=== PATIENT | female | born 1965 | race Caucasian/White ===

== ENCOUNTER 2024-02-11 06:06 | Inpatient (IN) ==
--- NOTE | 2023-12-17 09:09 | PAT Medication Instructions ---
Medication Instructions Date of Service December 17, 2023 Home Medications losartan 25 mg tablet 50 mg PO QAM multivitamin 1 tab PO QAM polyethylene glycol 3350 17 gram/dose oral powder (GlycoLax) 17 g PO UD PRN naproxen 500 mg tablet 500 mg PO UD PRN tramadol 50 mg tablet 0 mg PO UD PRN Continue as directed tramadol 50 mg tablet 0 mg PO UD PRN(if needed) ASK your surgeon for instructions naproxen 500 mg tablet 500 mg PO UD PRN DO NOT take the morning of surgery losartan 25 mg tablet 50 mg PO QAM multivitamin 1 tab PO QAM polyethylene glycol 3350 17 gram/dose oral powder (GlycoLax) 17 g PO UD PRN Other Notes NOTHING TO EAT OR DRINK AFTER MIDNIGHT. If you have any questions please call us at [phone] or [phone] or [phone] or [phone]
--- NOTE | 2023-12-22 10:46 | Anesthesiology Consultation ---
Date of Service December 22, 2023 Assessment & Plan (1) Encounter for pre-operative examination: - PCP pre-operative evaluation 12/22/23 [facility]: "...Reviewed pre op testing done at [facility] this morning -- EKG, CXR, and labs WNL. No contraindications to above- listed procedure...Reviewed pre op testing done at [facility] this morning -- EKG, CXR, and labs WNL. No contraindications to above-listed procedure..." Chart Review Chart Review: Acceptable Risk for Surgery and Patient seen in Pre Admission Testing Teaching & Discussion Pre-Anesthesia Teaching/Discussion Notes: Instructed NPO after midnight before surgery, except medications with 15 cc of water. Medication instructions provided according to the PAT guidelines. History Surgery Operation Date: 02/11/24 07:45 Proposed Procedures p L4-L5 Decompression and Fusion with Spinal Cord Monitoring - Praveen Marie DO Height/Weight Height: 5 ft 8 in Weight: 60 kg Allergies Allergy/AdvReac Type Severity Reaction Status Date / Time No Known Allergies Allergy Verified 12/16/23 14:45 Medications Home Medications Medication Instructions Recorded Confirmed Last Taken losartan 25 mg tablet 50 mg PO QAM 08/14/21 12/16/23 Unknown multivitamin 1 tab PO QAM 08/14/21 12/16/23 Unknown polyethylene glycol 3350 17 17 g PO UD PRN regularity 08/14/21 12/16/23 Unknown gram/dose oral powder (GlycoLax) naproxen 500 mg tablet 500 mg PO UD PRN headaches 12/16/23 12/16/23 Unknown tramadol 50 mg tablet 0 mg PO UD PRN pain in fingers 12/16/23 12/16/23 Unknown Past Medical History Medical History (Updated 12/22/23 @ 13:42 by Dannielle Silverman PA-C) Chronic headaches onset 2021, denies change or worsening HTN (hypertension) variable per pt Low back pain chronic, denies change or worsening Pain of hand and fingers pain of fingers/no official dx. No rheumatoid markers per pt. Patient denies h/o stroke, seizures, heart attack, heart failure, DM, blood clots/DVTs or blood transfusions. Exercise / Class Metabolic Activity II 4-5 Yardwork/Stairs/Walk up hill (denies chest discomfort or shortness of breath with 1 FOS) Past Surgical History Surgical History (Updated 12/22/23 @ 10:53 by Dannielle Silverman PA-C) H/O wisdom tooth extraction History of bilateral breast reduction surgery History of bunionectomy of right great toe History of colonoscopy History of repair of rectocele Hx of LASIK Past Anesthesia History No Hx of Anesthesia Complications and No Family Hx of Anesthesia Complications History of PONV No Hx of PONV and No Hx of Motion Sickness Social History Smoking Status: Never smoker Do You Dip or Chew Tobacco: No Hx Alcohol Use: No Hx Substance Use: No substance use type: does not use Review of Systems Patient denies chest pain, shortness of breath, dyspnea on exertion, snoring, witnessed apneas, reflux, fever, chills, cough, wheezing, or palpitations. Physical Exam Vital Signs Vitals BP 138/86 manual left arm P 95 TEMP 99.1 SP02 97% on RA RESP 17 Physical Patient resting comfortably in chair in no acute distress, alert and oriented, responding appropriately throughout visit Full cervical extension range of motion without pain TMD 3.5 finger breadths Mallampati Score 2 Dentition: intact, denies chipped or loose teeth, caps/crowns, implants or bridges Lungs: normal respiratory effort. Good air movement, clear throughout to auscultation, no adventitious breath sounds Cardiac: regular rate and rhythm, no murmurs noted Carotid arteries: negative bruit bilat Lab Results Anesthesia Preop Results Results Anesthesia Widget: WBC 6.18 K/ul (4.8-10.8) 12/22/23 Hgb 13.6 g/dl (12.0-16.0) 12/22/23 Hct 39.5 % (37.0-47.0) 12/22/23 Plt 257 K/uL (130-400) 12/22/23 Na 138 mmol/L (136-145) 12/22/23 K 4.1 mmol/L (3.5-5.1) 12/22/23 Cl 106 mmol/L (98-107) 12/22/23 CO2 25 mmol/L (21-32) 12/22/23 BUN 22 mg/dl (6-23) 12/22/23 Creat 0.78 mg/dl (0.6-1.2) 12/22/23 Glucose Level 72 mg/dl (70-99(Fasting)) 12/22/23 PT 11.5 Seconds (9.0-12.0) 12/22/23 PTT 26 Seconds (21-31) 12/22/23 INR 1.1 (0.9-1.1) 12/22/23 Urine Color Dark Yellow 12/22/23 Urine Appearance Clear (Clear) 12/22/23 Urine pH 5.5 (4.5-7.5) 12/22/23 Urine Specific [place] 1.020 (1.000-1.030) 12/22/23 Urine Protein Negative (Negative) 12/22/23 Urine Glucose (UA) Negative (Negative) 12/22/23 Urine Ketones Negative (Negative) 12/22/23 Urine Blood Negative (Negative) 12/22/23 Urine Nitrite Negative (Negative) 12/22/23 Urine Bilirubin Negative (Negative) 12/22/23 Urine Urobilinogen Negative (Negative) 12/22/23 Urine Leukocyte Esterase Negative (Negative) 12/22/23 Blood Type O Positive 12/22/23 Antibody Screen NEGATIVE 12/22/23 Testing Electrocardiogram Date: 12/22/23 NSR with sinus arrhythmia, rate 75 bpm Poor R wave progression, consider anterior CT vs lead placement vs LVH Chest X-Ray Date: 12/22/23 No acute process. Stress Test Date: 08/09/22 Pharmacologic No evidence of ischemia or infarction Normal LVEF and wall motion EF 53%
[2024-02-11] MEDS: LR 15ML/HR IV SCH (06:52)
[2024-02-11] MEDS: LR 60ML/HR IV SCH (06:52)
[2024-02-11] MEDS: GABAPENTIN 600 MG DOSE PO SCH (06:57)
[2024-02-11] MEDS: ACETAMINOPHEN 500 MG TAB PO SCH (06:57)
[2024-02-11] MEDS: CeleBREX 200 MG CAP PO SCH (06:57)
[2024-02-11] MEDS ORDERED: MIDAZOLAM HCL 1 MG/ML 2ML VIAL ONE (07:24)
[2024-02-11] MEDS ORDERED: SUGAMMADEX SODIUM 200 MG/2 ML VIAL IV ONE (07:24)
[2024-02-11] MEDS ORDERED: ROCURONIUM BROMIDE 10 MG/ML 5 ML VIAL IV ONE (07:24)
[2024-02-11] MEDS ORDERED: ONDANSETRON INJ 2 MG/ML 2 ML VIAL ONE (07:24)
[2024-02-11] MEDS ORDERED: LIDOCAINE 2% 2 ML VIAL/AMP(20MG/ML) INFIL ONE (07:24)
[2024-02-11] MEDS ORDERED: fentaNYL citrate PF 100 MCG/2 ML VIAL ONE (07:24)
[2024-02-11] MEDS ORDERED: DEXAMETHASONE SOD INJ 4 MG/ML VIAL ONE (07:24)
[2024-02-11] MEDS ORDERED: PROMETHAZINE HCL 6.25 MG in SODIUM CHLORIDE 0.9% 50 ML IV PRN (07:48)
[2024-02-11] MEDS ORDERED: ePHEDrine sulfate 50 MG/ML AMP IV PRN (07:48)
[2024-02-11] MEDS ORDERED: ATROPINE SULFATE 0.1 MG/ML 10ML SYR IV PRN (07:48)
[2024-02-11] MEDS ORDERED: ONDANSETRON INJ 2 MG/ML 2 ML VIAL IV PRN ×2 (07:48→11:13)
--- NOTE | 2024-02-11 07:49 | History & Physical Bridge Note ---
Date of Service February 11, 2024 History & Physical Bridge Note I have examined the patient, reviewed the History & Physical and in the interval since the performance of the History & Physical I have noted the following changes of clinical significance: no changes noted
--- NOTE | 2024-02-11 07:50 | History & Physical Report ---
Date of Service February 11, 2024 Assessment & Plan (1) Neurogenic claudication due to lumbar spinal stenosis: Plan: L4-L5 decompression and fusion possible L5-S1 History of Present Illness Chief Complaint: Back and leg pain Primary Care Provider: Rosy Wheeler DO This is a 58-year-old female presents with chronic persistent back and leg pain after failing course of nonoperative care is here for surgical invention. Allergies Allergy/AdvReac Type Severity Reaction Status Date / Time No Known Allergies Allergy Verified 02/11/24 06:34 Home Medications Medication Instructions Recorded Confirmed Type losartan 25 mg tablet 50 mg PO QAM 08/14/21 02/11/24 History multivitamin 1 tab PO QAM 08/14/21 02/11/24 History polyethylene glycol 3350 17 17 g PO UD PRN regularity 08/14/21 02/11/24 History gram/dose oral powder (GlycoLax) naproxen 500 mg tablet 500 mg PO UD PRN headaches 12/16/23 02/11/24 History tramadol 50 mg tablet 50 mg PO UD PRN pain in fingers 12/16/23 02/11/24 History calcium 100 mg capsule 100 mg PO 02/11/24 History cholecalciferol (vitamin D3) 10 10 mcg PO DAILY 02/11/24 02/11/24 History mcg (400 unit) capsule (Vitamin D3) Past Med/Surg History Medical History (Updated 02/11/24 @ 07:50 by Praveen Marie DO) Chronic headaches onset 2021, denies change or worsening Pain of hand and fingers pain of fingers/no official dx. No rheumatoid markers per pt. Low back pain chronic, denies change or worsening HTN (hypertension) variable per pt Surgical History Hx of LASIK History of colonoscopy History of bilateral breast reduction surgery History of repair of rectocele History of bunionectomy of right great toe H/O wisdom tooth extraction Social History Smoking Status: Never smoker Do You Dip or Chew Tobacco: No; Hx Alcohol Use: No Hx Substance Use: No Preferred Language: Kazakh Communication Ability: Effective Visual Impairment: No Limitations Hearing Ability: Normal Housekeeping Coordinator Required: No Beliefs That Will Affect Care: None marital status: Current Living Situation: Spouse Current Living Situation Comment: and dog current occupational status: employed 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 Physical Exam Physical Exam: Patient is alert and oriented Heart regular in rhythm lungs clear Results & Data Results & Data Vital Signs (Past 12 Hours) Vital Signs Temp Pulse Resp BP Pulse Ox O2 Del Method 02/11/24 06:38 36.8 C 89 18 134/93 97 Room Air
[2024-02-11] MEDS: ceFAZolin 2000MG 2,000 MG/15 ML SYR IV SCH (07:58)
[2024-02-11] MEDS ORDERED: KETAMINE HCL 10MG/ML SYR ONE (08:30)
[2024-02-11] MEDS: BUPIVACAINE/EPINEPHRINE 0.5% MPF 1:200,000 30 ML VIAL ONE (08:30)
[2024-02-11] MEDS ORDERED: ACETAMINOPHEN 1000 MG/100 ML IV IV ONE (08:30)
[2024-02-11] MEDS: ceFAZolin 330 MG/ML 1 GM VIAL ONE (08:30)
[2024-02-11] MEDS ORDERED: PHENYLEPHRINE 100MCG/ML 10ML SYR IV ONE (08:38)
[2024-02-11] MEDS: FLOSEAL HEMOSTATIC MATRIX 10ML TOP ONE (09:06)
--- NOTE | 2024-02-11 09:28 | Operative Report ---
Post Operative Report Pre & Post Diagnosis Operation Date: 02/11/24 07:45 Pre-Op Diagnosis: Spinal Stenosis, Lumbar Region with Neurogenic Claudication Lumbar spondylolisthesis L4-5 Post-Op Diagnosis: Same I identified the patient and participated in the time-out.: Yes Procedure Operation Date: 02/11/24 07:45 Actual Procedures #1 lumbar decompression with bilaterally facetectomies and foraminotomies L3-L4 L4-5 per #2 posterior spinal fusion L4-5. #3 placed posterior instrumentation L4-5. #4 interbody fusion L4-5 and #5 placement of Spira 14 x 26 mm x 2 at L4-5 #6 placement locally harvested morselized autograft in the posterior gutters. #7 placement of infuse collagen sponge combined with Koros bone graft in the posterior lateral gutters and Morpheus bone graft in the interbody space. Surgeon Praveen Marie DO Endo Tech Dee Wallace Estimated Blood Loss 50 Findings Consistent with Post-Op Diagnosis Specimens None Indications This is a 58-year-old female presents problems diagnosis of failed course of nonoperative care is here for surgical invention. Description of Procedure Patient was met with identified informed consent obtained. Patient was then taken to the operative suite underwent patient placed in a prone position objectionable top Celso frame. All bony prominences well-padded eyes inspected to ensure no external pressure placed upon the. This point lumbar spine was prepped and draped in a sterile fashion. Sharp dissection with the assistance of Bovie cautery from down to expose the lamina transverse processes of L4-5 bilaterally. From caudal cephalad fashion complete laminectomy of L4 was performed including bilateral medial facetectomies and foraminotomies addressing severe spinal stenosis. I then performed partial laminectomy of L3 including bilateral medial facetectomies to address all lateral recess stenosis. Pedicle screws were then placed at L4-5 bilaterally with assistance of fluoroscopy in the process wendy placed. By way of a transforaminal approach on the right a discectomy was performed endplates guided to subcortical bleeding bone and a 14 x 26 mm Spira cage with Morpheus bone graft tapped in position. Then proceeded to the left transforaminal region at L4-5 performed discectomy endplates again curetted to subcortical bleeding bone and a second 14 x 26 mm Spira cage with Morpheus bone graft tapped in position. The rods then compressed locked in final position bilaterally. The transverse processes of L4-5 burred to subcortically and bone. Infuse collagen sponge combined with Koros bone graft and locally harvested morselized autograft placed in the posterior gutters. 15 round RUSH drain inserted. The incision was then closed with 1 Vicryl the fascia 2-0 Vicryl subcutaneously and 4 Monocryl for final closure. Steri-Strips sterile dressings placed. Patient waken taken to PACU stable condition. Please note spinal cord monitoring visualized at the procedure no changes noted. Lastly Dee Wallace is present at the entire procedure by the patient positioning complex portion of the surgery and final skin closure. I attest to the content of the Intraoperative Record and any orders documented therein. Any exceptions are noted below.
[2024-02-11] MEDS: fentaNYL citrate PF 100 MCG/2 ML VIAL IV PRN (09:50)
[2024-02-11] MEDS: HYDROmorphone INJ 2 MG/ML SYR/VIAL IV PRN (10:10)
--- NOTE | 2024-02-11 10:35 | Anesthesiology Progress Note ---
Date of Service February 11, 2024 Anesthesia Post Procedure Vital Signs Vital Signs: Temp Pulse Resp BP Pulse Ox O2 Del Method O2 Flow Rate 02/11/24 10:00 90 12 130/80 100 Nasal Cannula 2 02/11/24 09:50 98 H 16 130/99 100 Nasal Cannula 4 02/11/24 09:40 36.2 C L 96 H 20 150/87 H 100 Nasal Cannula 4 02/11/24 06:38 36.8 C 89 18 134/93 97 Room Air Pain Intensity Back: Pain Intensity: 7 Transfer of Care Handoff Completed per policy Notes Mental Status: alert / awake / arousable Patient Amnestic to Procedure: Yes Nausea / Vomiting: adequately controlled Pain: adequately controlled Airway Patency, RR, SpO2: stable & adequate BP & HR: stable & adequate Hydration State: stable & adequate Anesthetic Complications: no major complications apparent
--- NOTE | 2024-02-11 11:04 | Fluoroscopy Report ---
FL lumbar spine 2-3V CLINICAL HISTORY: L4-L5 DECOMP/FUSION COMPARISON STUDY: None. FLUOROSCOPY TIME: 15 seconds. Ka, r: 9.49 mGy FLUOROSCOPIC IMAGES: 2 FINDINGS: Fluoroscopy was provided during L4-L5 decompression, discectomy and bilateral pedicle screw fusion. IMPRESSION: Fluoroscopy provided during L4-L5 decompression and fusion. ACT 112: Negative or not required by law. Electronically signed by: Samir Garner M.D. 02/11/2024 11:03 AM
[2024-02-11] MEDS ORDERED: diphenhydrAMINE Capsule 25 MG CAP PO PRN (11:13)
[2024-02-11] MEDS ORDERED: ACETAMINOPHEN 500 MG TAB PO PRN (11:13)
[2024-02-11] MEDS ORDERED: PROMETHAZINE HCL 12.5 MG in SODIUM CHLORIDE 0.9% 50 ML IV PRN (11:13)
[2024-02-11] MEDS ORDERED: HYDROmorphone INJ 1 MG/ML SYRINGE IV PRN (11:13)
[2024-02-11] MEDS ORDERED: bisacodyL 10 MG SUPP PR PRN (11:13)
[2024-02-11] MEDS ORDERED: DO NOT ADMINISTER PNEUMOCOCCAL VACCINE PRN (11:13)
[2024-02-11] MEDS ORDERED: METOCLOPRAMIDE HCL INJ 5 MG/ML 2 ML VIAL IV PRN (11:13)
[2024-02-11] MEDS ORDERED: hydrOXYzine HCl 25 MG TAB PO PRN (11:13)
[2024-02-11] MEDS ORDERED: ONDANSETRON 4 MG OD TAB PO PRN (11:13)
[2024-02-11] MEDS ORDERED: ACETAMINOPHEN 1,000 MG/100 ML VIAL IV PRN (11:13)
[2024-02-11] MEDS ORDERED: DO NOT ADMINISTER FLU VACCINE PRN (11:13)
[2024-02-11] MEDS ORDERED: LORazepam 0.5 MG TAB PO PRN (11:13)
[2024-02-11] MEDS ORDERED: FAMOTIDINE 20 MG TAB PO PRN (11:13)
[2024-02-11] MEDS ORDERED: MAGNESIUM HYDROXIDE SUSP 30 ML UDC PO PRN (11:13)
[2024-02-11] MEDS ORDERED: NALOXONE HCL 0.4 MG/1 ML VIAL/CARP IV PRN (11:13)
[2024-02-11] MEDS ORDERED: ALUMINUM/MAGNESIUM SUSP 30 ML UDC PO PRN (11:13)
[2024-02-11] MEDS ORDERED: SOD PHOSPHATE/SOD BIPHOSPHATE ENEMA 132 ML BTL PR PRN (11:13)
[2024-02-11] MEDS: LACTATED RINGER'S 1,000 ML IV SCH (11:26)
[2024-02-11] MEDS: HYDROmorphone INJ 0.5 MG/0.5 ML SYR IV PRN (12:11)
--- OUTSIDE RECORDS SUMMARY | 2024-02-11 14:35 | External Medical Summary | Summary of Care ---
Author Name Unknown Organization [facility] Address [address] [place] [address] Phone [phone] Care Team Providers Care Triple Valve Mechanic Name Role Phone Susi Art DO Primary Care Provider [phone] Reason for Visit * Reason Onset Date Comments Preop Pt Assessment 12/04/2023 By 2/5 Encounter Details Date Type Department Care Team (Late st Contact Info) Description 12/04/2023 Telephone Family Practice [place] [facility] [address] [place] [address] Susi Art DO [address] [place] [address] Preop Pt Assessment (By 2/5) Allergies No known active allergiesdocumented as of this encounter (statuses as of 12/04/2023) Medications Medication Sig Dispensed Refills Start Date End Date Status Diclofenac Sodium 75 MG Oral Tablet Delayed Release (Voltaren)Indications: Arthritis of carpometacarpal (CMC) joint of thumb Take 1 Tablet by mouth in the morning and 1 Tablet before bedtime. With food.. 60 Tablet 3 02/07/2023 Active Omeprazole 40 MG Oral Capsule Delayed Release (PriLOSEC)Indications: Gastroesophageal reflux disease with esophagitis without hemorrhage Take 1 Capsule by mouth in the morning. 1 hour before the first meal of the day. 30 Capsule 5 02/10/2023 Active Topiramate 50 MG Oral Tablet (Topamax)Indications:O verweight,Chronic intractable headache, unspecified headache type Take 1/2 tablet in the evening for 1 week and then increase to 1 tablet in the evening 30 Tablet 2 02/20/2023 Active valACYclovir HCl 1 GM Oral Tablet (Valtrex)Indications:C old sore Take 1 Tablet by mouth in the morning and 1 Tablet before bedtime. As needed for cold sores. 30 Tablet 0 02/20/2023 Active Losartan Potassium 100 MG Oral Tablet (Cozaar)Indications:HT N, goal below 140/90 TAKE 1 TABLET IN THE MORNING 90 Tablet 1 07/07/2023 Active traMADol HCl 50 MG Oral Tablet (Ultram)Indications:Ch ronic pain syndrome,Lumbar degenerative disc disease Take 1 Tablet by mouth daily as needed for Pain, Severe. 60 Tablet 0 08/11/2023 Active Polyethylene Glycol 3350 17 GM/SCOOP Oral Powder (GlycoLax) Take 17 g by mouth in the morning. 850 g 7 08/08/2023 Active documented as of this encounter (statuses as of 12/04/2023) Active Problems Problem Noted Date Diagnosed Date MAREN (generalized anxiety disorder) 02/07/2023 MEDICATION USE AGREEMENT 02/07/2023 HTN, goal below 140/90 03/06/2022 Chronic fatigue 03/06/2022 Lumbar degenerative disc disease 03/06/2022 Chronic pain syndrome 03/06/2022 documented as of this encounter (statuses as of 12/04/2023) Resolved Problems Problem Noted Date Diagnosed Date Resolved Date Chest pain 07/26/2022 02/07/2023 Jaw pain 07/26/2022 02/07/2023 Trochanteric bursitis of right hip 12/10/2018 02/07/2023 documented as of this encounter (statuses as of 12/04/2023) Immunizations Name Administration Dates Next Due COVID-19 mRNA, LNP-s, No Pre serve, 2-Dose Series (Markr) 11/12/2021,11/29/2020 TDAP (age 11 and older)(Adacel) 06/15/2012 documented as of this encounter Social History Tobacco Use Types Packs/Day Years Used Date Smoking Tobacco: Never Smokeless Tobacco: Never Alcohol Use Standard Drinks/Week Comments Yes 0 (1 standard drink = 0.6 oz pur e alcohol) Sex and Gender Information Value Date Recorded Sex Assigned at Not on file Gender Identity Not on file Sexual Orientation Not on file Job Start Date Occupation Industry Not on file Not on file Not on file documented as of this encounter Miscellaneous Notes * Telephone Encounter - Lesvia العراقي OSA - 12/04/2023 10:21 AM EST Spoke with pt. No openings at [place] before surgery date. Appt scheduled 12/22 at [facility] to coincide with pre op testing. * Telephone Encounter - Sherry Burch OSA - 12/04/2023 9:36 AM EST Call from Dr. Marie Mead [facility] office to request a pre op clearance for spine surgery scheduled for Jan 12 call back to patient. Pre op testing scheduled for Dec 22 at [facility]. documented in this encounter Plan of Treatment Upcoming Encounters Date Type Department Care Team (Late st Contact Info) Description 12/22/2023 1:00 PM EST Office Visit Family Practice [facility] [address] [place] [address] Vashti Vo CRNP [address] [place] [address] Health Maintenance Due Date Last Done Comments Hepatitis B (1 of 3 - 3-dose series) 1967 Depression Screening 1979 HIV Screening 1982 Albumin/Creatinine Ratio 1985 Hepatitis C Screening 1985 Pap Smear 1988 Cervical Cancer Screening 1997 HPV/Co-Test 1997 Cologuard 2012 Colonoscopy 2012 Colorectal Cancer Screening 2012 Fecal Occult Blood Test 2012 Sigmoidoscopy 2012 Zoster Vaccines (1 of 2) 2017 DTaP,Tdap,and Td Vaccines (2 - Td or Tdap) 06/15/2022 06/15/2012 COVID-19 Vaccine (3 - 2022-2 4 season) 2023 11/12/2021, 11/29/2020 Influenza Vaccine (FLU shot) (#1) 2023 GFR 12/09/2023 12/09/2022, 07/26/2022, 03/06/2022 Mammogram 02/21/2024 02/20/2023 Diabetes Screening 12/09/2025 12/09/2022, 07/26/2022, 03/06/2022 Lipid Panel 03/06/2027 03/06/2022 GARDASIL-HPV IMMUNIZATION SERIES Aged Out No longer eligible b ased on patient's age to complete this topic MENINGOCOCCAL (MENACTRA/MENVEO) Aged Out No longer eligible b ased on patient's age to complete this topic Pneumococcal Vaccine: Pediatrics (0 to 5 Years) and At-Risk Patients (6 to 64 Years) Aged Out No longer eligible b ased on patient's age to complete this topic documented as of this encounter Medical Devices Not on filedocumented as of this encounter Care Teams Triple Valve Mechanic Relationship Specialty Start Date End Date Susi Art DO PCP - General Family Medicine 03/06/22 documented as of this encounter
--- OUTSIDE RECORDS SUMMARY | 2024-02-11 14:35 | External Medical Summary | Summary of Care ---
Author Name Unknown Organization [facility] Address [address] [place] [address] Phone [phone] Care Team Providers Care Human Factors Ergonomist Name Role Phone Susi Art Primary Care Provider [phone] Reason for Visit * Reason Comments pre-op exam Dr. Marie UMICHAEL spine surgery 02/10. Pt dose have CPE with Dr. Colon in her PCP office. Encounter Details Date Type Department Care Team (Late st Contact Info) Description 12/22/2023 1:00 PM EST Office Visit Family [facility] [address] [place] [address] Vashti Vo CRNP [address] [facility] [place] [address] Pre-op exam*; HTN, goal below 140/90; Lumbar degenerative disc disease Allergies No known active allergiesdocumented as of this encounter (statuses as of 12/22/2023) Medications Medication Sig Dispensed Refills Start Date [...] as of this encounter (statuses as of 12/22/2023) Active Problems Problem Noted Date Diagnosed Date MAREN (generalized anxiety disorder) 02/07/2023 MEDICATION USE AGREEMENT 02/07/2023 HTN, goal below 140/90 03/06/2022 Chronic fatigue 03/06/2022 Lumbar degenerative disc disease 03/06/2022 Chronic pain syndrome 03/06/2022 documented as of this encounter (statuses as of 12/22/2023) Resolved Problems Problem Noted Date Diagnosed Date Resolved Date Chest pain 07/26/2022 02/07/2023 Jaw pain 07/26/2022 02/07/2023 Trochanteric bursitis of right hip 12/10/2018 02/07/2023 documented as of this encounter (statuses as of 12/22/2023) Immunizations Name Administration Dates Next Due COVID-19 mRNA, LNP-s, No Pre serve, 2-Dose Series (Pfizer) 11/12/2021,11/29/2020 TDAP (age 11 and older)(Adacel) 06/15/2012 documented as of this encounter Social History Tobacco Use Types Packs/Day Years Used Date Smoking Tobacco: Never Smokeless Tobacco: Never Alcohol Use Standard Drinks/Week Comments Yes 0 (1 standard drink = 0.6 oz pur e alcohol) Sex and Gender Information Value Date Recorded Sex Assigned at Female 12/22/2023 1:23 PM EST Gender Identity Female 12/22/2023 1:23 PM EST Sexual Orientation Straight 12/22/2023 1: 23 PM EST Job Start Date Occupation Industry Not on file Not on file Not on file documented as of this encounter Last Filed Vital Signs Vital Sign Reading Time Taken Comments Blood Pressure 122/72 12/22/2023 1:36 PM EST Pulse 92 12/22/2023 1:36 PM EST Temperature 36.3 C (97.3 F) 12/22/2023 1:36 PM ES T Respiratory Rate - - Oxygen Saturation 97% 12/22/2023 1:36 PM EST Inhaled Oxygen Concentration - - Weight 60 kg (132 lb 4.8 oz) 12/22/2023 1:36 PM EST Height 172.7 cm (5' 8") 12/22/2023 1:36 PM EST Body Mass Index 20.12 12/22/2023 1:36 PM EST documented in this encounter Nursing Notes * Pilar Winter LPN - 12/22/2023 1:26 PM EST The patient has been properly identified by confirmation of name and date of . Chief Complaint Patient presents with pre-op exam Dr. Marie U spine surgery 02/10. Pt dose have CPE with Dr. Colon in her PCP office. Pt would like to get pr op done today and will get her CPE at [facility] when she goes Pt lost 41lbs this year as well. Decreased portions, working out. documented in this encounter Plan of Treatment Upcoming Encounters Date Type Department Care Team (Late st Contact Info) Description 01/26/2024 5:40 PM EDT Office Visit Family Practice [place] [facility] [address] [place] [address] Rosy Wheeler DO [address] [place] [address] Health Maintenance Due Date Last Done Comments Hepatitis B (1 of 3 - 3-dose series) 1967 HIV Screening 1982 Albumin/Creatinine Ratio 1985 Hepatitis [...] 12/09/2023 12/09/2022, 07/26/2022, 03/06/2022 Mammogram 02/21/2024 02/20/2023 Depression Screening 12/22/2024 12/22/2023 Lipid Panel 03/06/2027 03/06/2022 GARDASIL-HPV IMMUNIZATION SERIES [...] Not on filedocumented as of this encounter Visit Diagnoses Diagnosis Pre-op exam- Primary Preoperative examination, unspecified HTN, goal below 140/90 Unspecified essential hypertension Lumbar degenerative disc disease Degeneration of lumbar or lumbosacral intervertebral disc documented in this encounter Care Teams Human Factors Ergonomist Relationship Specialty Start Date End Date Susi Art DO PCP - General Family Medicine 03/06/22 documented as of this encounter
--- OUTSIDE RECORDS SUMMARY | 2024-02-11 14:35 | External Medical Summary | Summary of Care ---
Author Name Unknown Organization [facility] Address [address] [place] [address] Phone [phone] Care Team Providers Care Degreaser Name Role Phone Rosy Wheeler DO Primary Care Provider +1- [phone] Reason for Visit * Reason Comments Physical-Exam Physical exam, was s upposed to have surgery 01/12, but has been moved to 02/10, on her back. Due for routine, wants to establish and stay with you Encounter Details Date Type Department Care Team (Late st Contact Info) Description 01/26/2024 5:40 PM EDT Office Visit Family Practice [address] [place] [address] Rosy Wheeler DO [address] [place] [address] HTN, goal below 140/90*; Lumbar degenerative disc disease; Vasomotor symptoms due to menopause; Chronic pain syndrome Allergies No known active allergiesdocumented as of this encounter (statuses as of 01/26/2024) Medications Medication Sig Dispensed Refills Start Date End Date Status Omeprazole 40 MG Oral Capsule Delayed Release (PriLOSEC)Indications :Gastroesophageal reflux disease with esophagitis without hemorrhage Take 1 Capsule by mouth in the morning. 1 hour before the first meal of the day. 30 Capsule 5 02/10/2023 Active valACYclovir HCl 1 GM Oral Tablet (Valtrex)Indications: Cold sore Take 1 Tablet by mouth in the morning and 1 Tablet before bedtime. As needed for cold sores. 30 Tablet 0 02/20/2023 Active Polyethylene Glycol 3350 17 GM/SCOOP Oral Powder (GlycoLax) Take 17 g by mouth in the morning. 850 g 7 08/08/2023 Active traMADol HCl 50 MG Oral Tablet (Ultram)Indications:C hronic pain syndrome,Lumbar degenerative disc disease Take 1 Tablet by mouth daily as needed for Pain, Severe. 60 Tablet 0 12/22/2023 Active Losartan Potassium 100 MG Oral Tablet (Cozaar)Indications:H TN, goal below 140/90 TAKE 1 TABLET IN THE MORNING 90 Tablet 1 01/06/2024 Active Veozah 45 MG Oral Tablet (Fezolinetant)Indicat ions:Vasomotor symptoms due to menopause Take 1 Tablet by mouth every morning. 30 Tablet 5 01/26/2024 Active Diclofenac Sodium 75 MG Oral Tablet Delayed Release (Voltaren)Indications :Arthritis of carpometacarpal (CMC) joint of thumb Take 1 Tablet by mouth in the morning and 1 Tablet before bedtime. With food.. 60 Tablet 3 02/07/2023 4 Discontinue d(End of Procedure) Topiramate 50 MG Oral Tablet (Topamax)Indications: Overweight,Chronic intractable headache, unspecified headache type Take 1/2 tablet in the evening for 1 week and then increase to 1 tablet in the evening 30 Tablet 2 02/20/2023 4 Discontinue d(End of Procedure) documented as of this encounter (statuses as of 01/26/2024) Active Problems Problem Noted Date Diagnosed Date MAREN (generalized anxiety disorder) 02/07/2023 MEDICATION USE AGREEMENT 02/07/2023 HTN, goal below 140/90 03/06/2022 Chronic fatigue 03/06/2022 Lumbar degenerative disc disease 03/06/2022 Chronic pain syndrome 03/06/2022 documented as of this encounter (statuses as of 01/26/2024) Resolved Problems Problem Noted Date Diagnosed Date Resolved Date Chest pain 07/26/2022 02/07/2023 Jaw pain 07/26/2022 02/07/2023 Trochanteric bursitis of right hip 12/10/2018 02/07/2023 documented as of this encounter (statuses as of 01/26/2024) Immunizations Name Administration Dates Next Due COVID-19 mRNA, LNP-s, No Pre serve, 2-Dose Series ([employer]) 11/12/2021,11/29/2020 TDAP (age 11 and older)(Adacel) 06/15/2012 documented as of this encounter Social History Tobacco Use Types Packs/Day Years Used Date Smoking Tobacco: Never Smokeless Tobacco: Never Tobacco Cessation:Counseling Given: No Alcohol Use Standard Drinks/Week Comments Yes 0 (1 standard drink = 0.6 oz pur e alcohol) PHQ-2 Answer Date Recorded PHQ Adult Total Score 0 12/22/2023 Hunger Vital Sign Answer Date Recorded Within the past 12 months, y ou worried that your food would run out before you got the money to buy more. Never true 12/22/19 24 Within the past 12 months, t he food you bought just didn't last and you didn't have money to get more. Never true 12/22/2023 Sex and Gender Information Value Date Recorded Sex Assigned at Female 12/22/2023 1:23 PM EST Gender Identity Female 12/22/2023 1:23 PM EST Sexual Orientation Straight 12/22/2023 1: 23 PM EST Job Start Date Occupation Industry Not on file Not on file Not on file documented as of this encounter Last Filed Vital Signs Vital Sign Reading Time Taken Comments Blood Pressure 118/86 01/26/2024 5:51 PM EDT Pulse 73 01/26/2024 5:51 PM EDT Temperature 36.4 C (97.5 F) 01/26/2024 5:51 PM ED T Respiratory Rate 18 01/26/2024 5:51 PM EDT Oxygen Saturation 96% 01/26/2024 5:51 PM EDT Inhaled Oxygen Concentration - - Weight 60.6 kg (133 lb 9.6 oz) 01/26/2024 5:51 P M EDT Height 172.7 cm (5' 8") 01/26/2024 5:51 PM EDT Body Mass Index 20.31 01/26/2024 5:51 PM EDT documented in this encounter Progress Notes * Rosy Wheeler, - 01/26/2024 5:47 PM EDT Subjective Anamaria Amaro is a 58 year old female. Chief Complaint Patient presents with Physical-Exam Physical exam, was supposed to have surgery 01/12, but has been moved to 02/10, on her back. Due for routine, wants to establish and stay with you HPI: 58-year-old female here today for routine visit Chart reviewed Overall patient is doing fairly well She is scheduled to have her lumbar fusion at L4-L5 with Dr. Marie on the of this month Her blood pressure is well controlled She does use tramadol sparingly for pain mainly in her hands which seems to be pretty severe, even light touch, patient has tried multiple medications including Cymbalta, Neurontin, anti-inflammatories, Effexor, Topamax Patient has a hard time with pain control with various medications over the years She has had some mild arthritis in the hands, I do not see that she ever had a nerve conduction study done She also gets cold sores every few months, uses Valtrex which seems to work fairly well at preventing major outbreak She also has a lot of hot flashes and night sweats associated with menopause, patient interested intrying veozah Appears to be receptor justin, does not appear to have any major contraindications to the medication PMH: Patient Active Problem List Diagnosis Code HTN, goal below 140/90 I10 Chronic fatigue R53.82 Lumbar degenerative disc disease M51.36 Chronic pain syndrome G89.4 MAREN (generalized anxiety disorder) F41.1 MEDICATION USE AGREEMENT [id number] Current Outpatient Medications Medication Sig Dispense Refill Omeprazole 40 MG Oral Capsule Delayed Release (PriLOSEC) Take 1 Capsule by mouth in the morning. 1 hour before the first meal of the day. 30 Capsule 5 valACYclovir HCl 1 GM Oral Tablet (Valtrex) Take 1 Tablet by mouth in the morning and 1 Tablet before bedtime. As needed for cold sores. 30 Tablet 0 Polyethylene Glycol 3350 17 GM/SCOOP Oral Powder (GlycoLax) Take 17 g by mouth in the morning. 850 g 7 traMADol HCl 50 MG Oral Tablet (Ultram) Take 1 Tablet by mouth daily as needed for Pain, Severe. 60Tablet 0 Losartan Potassium 100 MG Oral Tablet (Cozaar) TAKE 1 TABLET IN THE MORNING 90 Tablet 1 Veozah 45 MG Oral Tablet (Fezolinetant) Take 1 Tablet by mouth every morning. 30 Tablet 5 No current facility-administered medications for this visit. Past Medical History: Diagnosis Date Migraine-cluster headache syndrome Spina bifida (HCC) Past Surgical History: Procedure Laterality Date NM CORRECTION, HALLUX VALGUS (BUNIONECTOMY), WITH SESAMOIDECTOMY, WHEN PERFORMED; WITH PROXIMAL METATARSAL OSTEOTOMY, ANY METHOD. REDUCTION OF BREAST Bilateral REPAIR RECTOCELE Review of patient's allergies indicates: No Known Allergies Family History Problem Relation Age of Onset Hypertension Mother Strabismus Mother Heart Disorder Father Hypertension Father Other (still born) Sister Heart Disorder Grandmother (Maternal) heart attack in 50"s Other (Other) Grandfather (Maternal) burst appendix in 60's Dementia Grandmother (Paternal) Cirrhosis Grandfather (Paternal) Family Status Relation Status Mo Fa Alive Sis Bro Alive MGMA MGFA PGMA PGFA Social History Socioeconomic History Marital status: Spouse name: Not on file Number of children: 2 Years of education: Not on file Highest education level: Not on file Occupational History Not on file Tobacco Use Smoking status: Never Smokeless tobacco: Never Vaping Use Vaping Use: Never used Substance and Sexual Activity Alcohol use: Yes Drug use: Never Sexual activity: Yes Partners: Male Other Topics Concern Not on file Social History Narrative Not on file Social Determinants of Health Financial Resource Strain: Not on file Food Insecurity: No Food Insecurity (12/22/2023) Hunger Vital Sign Worried About Running Out of Food in the Last Year: Never true Ran Out of Food in the Last Year: Never true Transportation Needs: Not on file Physical Activity: Not on file Stress: Not on file Social Connections: Not on file Intimate Partner Violence: Not on file Housing Stability: Not on file Objective BP 118/86 | Pulse 73 | Temp 36.4 C (97.5 F) (Temporal Artery) | Resp 18 | Ht 1.727 m (5' 8") | Wt 60.6 kg (133 lb 9.6 oz) | SpO2 96% | BMI 20.31 kg/m | BSA 1.71 m Physical Exam Vitals and nursing note reviewed. Constitutional: General: She is not in acute distress. Appearance: Normal appearance. She is well-developed. She is not ill-appearing or diaphoretic. HENT: Head: Normocephalic and atraumatic. Right Ear: External ear normal. Left Ear: External ear normal. Mouth/Throat: Mouth: Mucous membranes are moist. Eyes: General: No scleral icterus. Right eye: No discharge. Left eye: No discharge. Cardiovascular: Rate and Rhythm: Normal rate. Heart sounds: Normal heart sounds. No murmur heard. Pulmonary: Effort: Pulmonary effort is normal. No respiratory distress. Abdominal: General: There is no distension. Palpations: Abdomen is soft. Musculoskeletal: General: No deformity. Cervical back: Neck supple. Right lower leg: No edema. Left lower leg: No edema. Skin: General: Skin is warm and dry. Neurological: Mental Status: She is alert and oriented to person, place, and time. Gait: Gait normal. Psychiatric: Mood and Affect: Mood normal. Behavior: Behavior normal. Thought Content: Thought content normal. Judgment: Judgment normal. ASSESSMENT/PLAN: HTN, goal below 140/90 (Primary) Lumbar degenerative disc disease Vasomotor symptoms due to menopause - Veozah 45 MG Oral Tablet (Fezolinetant); Take 1 Tablet by mouth every morning. Chronic pain syndrome Continue all current medications for now Patient is scheduled for surgery, I do not see any major contraindications for surgery Will try Victoza, unsure about insurance coverage Follow-up in 6 months or earlier as needed Follow Up: Return in about 6 months (around 07/28/2024). Rosy Wheeler DO documented in this encounter Nursing Notes * Lindsay Armendariz LPN - 01/26/2024 5:48 PM EDT Chief Complaint Patient presents with Physical-Exam Physical exam, was supposed to have surgery 01/12, but has been moved to 02/10, on her back. Due for routine, wants to establish and stay with you documented in this encounter Plan of Treatment Upcoming Encounters Date Type Department Care Team (Late st Contact Info) Description 09/13/2024 5:00 PM EDT Office Visit Family [facility] [address] [place] [address] Rosy Wheeler DO [address] [place] [address] [address] Health Maintenance Due Date Last Done Comments HIV Screening 1982 Albumin/Creatinine Ratio 1985 Hepatitis C Screening 1985 Hepatitis B (1 of 3 - 19+ 3-dose series) 1986 Pap Smear 1988 Cervical Cancer Screening 1997 HPV/Co-Test 1997 Cologuard 2012 Colonoscopy 2012 Colorectal Cancer Screening 2012 Fecal Occult Blood Test 2012 Sigmoidoscopy 2012 Zoster Vaccines (1 of 2) 2017 DTaP,Tdap,and Td Vaccines (2 - Td or Tdap) 06/15/2022 06/15/2012 COVID-19 Vaccine (3 - season) 2023 11/12/2021, 11/29/2020 Influenza Vaccine (FLU shot) (#1) 2023 Mammogram 02/21/2024 02/20/2023 Depression Screening 12/22/2024 12/22/2023 GFR 12/22/2024 12/22/2023, 11/18, 07/26/2022, Additional history exists Lipid Panel 03/06/2027 03/06/2022 GARDASIL-HPV IMMUNIZATION SERIES Aged Out No longer eligible based on patient's age to complete this topic MENINGOCOCCAL (MENACTRA/MENVEO) Aged Out No longer eligible based on patient's age to complete this topic Pneumococcal Vaccine: Pediatrics (0 to 5 Years) and At-Risk Patients (6 to 64 Years) Aged Out No longer eligible based on patient's age to complete this topic documented as of this encounter Medical Devices Not on filedocumented as of this encounter Visit Diagnoses Diagnosis HTN, goal below 140/90- Primary Unspecified essential hypertension Lumbar degenerative disc disease Degeneration of lumbar or lumbosacral intervertebral disc Vasomotor symptoms due to menopause Chronic pain syndrome documented in this encounter Care Teams Degreaser Relationship Specialty Start Date End Date Rosy Wheeler DO [address] [facility] [place] [address] PCP - General Family Medicine 01/26/24 documented as of this encounter
--- OUTSIDE RECORDS SUMMARY | 2024-02-11 14:35 | External Medical Summary | Summary of Care ---
Author Name Unknown Organization [facility] Address [address] [place] [address] Phone [phone] Care Team Providers Care Nitric Acid Plant Operator Name Role Phone Susi Art Primary Care Provider +1 -[phone] Reason for Visit * Reason Comments pre-op exam Dr. Marie UMICHAEL spine surgery 02/10. Pt dose have CPE with Dr. Colon in her PCP office. Encounter Details Date Type Department Care Team (Late st Contact Info) Description 12/22/2023 1:00 PM EST Office Visit Family [facility] [address] [place] [address] Vashti Vo CRNP [address] [facility] [place] [address] Pre-op exam*; HTN, goal below 140/90; Lumbar [...] today and will get her CPE at [facility] when she goes Pt lost 41lbs this year as well. Decreased portions, working out. documented in this encounter Plan of Treatment Upcoming Encounters Date Type Department Care Team (Late st Contact Info) Description 01/26/2024 5:40 PM EDT Office Visit Family Practice [place] [address] [place] [address] Rosy Wheeler DO [address] [place] [address] Health Maintenance Due Date Last Done Comments [...] disc documented in this encounter Care Teams Nitric Acid Plant Operator Relationship Specialty Start Date End Date Susi Art DO PCP - General Family Medicine 03/06/22 documented as of this encounter
--- OUTSIDE RECORDS SUMMARY | 2024-02-11 14:35 | External Medical Summary | Summary of Care ---
Author Name Unknown Organization [facility] Address [address] [facility] [place] [address] Phone [phone] Care Team Providers Care Night Filler Name Role Phone Susi Art Jasbirmarybel Primary Care Provider +1 -[phone] Encounter Details Date Type Department Care Team (Late st Contact Info) Description 01/05/2024 Orders Only Family Practice [facility] [address] [place] [address] Vashti Vo CRNP [address] [place] [address] Allergies No known active allergiesdocumented as of this encounter (statuses as of 01/05/2024) Medications Medication Sig Dispensed Refills Start Date [...] THE MORNING 90 Tablet 1 07/07/2023 Active Polyethylene Glycol 3350 17 GM/SCOOP Oral Powder (GlycoLax) Take 17 g by mouth in the morning. 850 g 7 08/08/2023 Active traMADol HCl 50 MG Oral Tablet (Ultram)Indications:Ch ronic pain syndrome,Lumbar degenerative disc disease Take 1 Tablet by mouth daily as needed for Pain, Severe. 60 Tablet 0 12/22/2023 Active documented as of this encounter (statuses as of 01/05/2024) Active Problems Problem Noted Date Diagnosed Date MAREN (generalized anxiety disorder) 02/07/2023 MEDICATION USE AGREEMENT 02/07/2023 HTN, goal below 140/90 03/06/2022 Chronic fatigue 03/06/2022 Lumbar degenerative disc disease 03/06/2022 Chronic pain syndrome 03/06/2022 documented as of this encounter (statuses as of 01/05/2024) Resolved Problems Problem Noted Date Diagnosed Date Resolved Date Chest pain 07/26/2022 02/07/2023 Jaw pain 07/26/2022 02/07/2023 Trochanteric bursitis of right hip 12/10/2018 02/07/2023 documented as of this encounter (statuses as of 01/05/2024) Immunizations Name Administration Dates Next Due COVID-19 mRNA, LNP-s, No Pre serve, 2-Dose Series (mention) 11/12/2021,11/29/2020 TDAP (age 11 and older)(Adacel) 06/15/2012 [...] on file documented as of this encounter Plan of Treatment Upcoming Encounters Date Type Department Care Team (Late st Contact Info) Description 01/26/2024 5:40 PM EDT Office Visit Family Practice [place] [address] [place] [address] Rosy Wheeler DO [address] [place] [address] Health Maintenance Due Date Last Done Comments [...] Not on filedocumented as of this encounter Procedures Procedure Name Priority Date/Time Associated Diagnosis Comments CHEMISTRY-OUTSIDE Routine 12/22/2023 documented in this encounter Results * CHEMISTRY-OUTSIDE (12/22/2023) Not all results display below - see scan for full detail OUTSIDE LAB (SEE SCANNED REPORT) Comment:SCAN INCL: PRE OP LA BS: CBCD,PT, INR, UA,CMP, TYPE/SCR CREATININE-OUTSID E LAB 0.78 0.6 - 1.2 MG/DL OUTSIDE LAB (SEE SCANNED REPORT) EGFR-OUTSIDE LAB 85.0 OUT SIDE LAB (SEE SCANNED REPORT) POTASSIUM-OUTSIDE LAB 4.1 3.5 - 5.1 MMOL/L OUTSIDE LAB (SEE SCANNED REPORT) GLUCOSE-OUTSIDE LAB 72 70 - 99 MG/DL OUTSIDE LAB (SEE SCANNED REPORT) HOURS FASTING OUTSID E LAB (SEE SCANNED REPORT) TRIGLYCERIDES-OUT SIDE LAB OUTSIDE LAB (SEE SCANNED REPORT) CHOLESTEROL-OUTSI DE LAB OUTSIDE LAB (SEE SCANNED REPORT) HDL-OUTSIDE LAB OUTS [facility] (SEE SCANNED REPORT) CHOL/HDL RATIO-OUTSIDE LAB OUTSIDE LA B (SEE SCANNED REPORT) LDL (CALCULATED)-OUTS [facility] OUTSIDE LAB (SEE SCANNED REPORT) LDL (DIRECT MEASURE)-OUTSIDE LAB OUTSIDE LAB (SEE SCANNED REPORT) HEMOGLOBIN, [id number] LAB OUTSIDE LAB (SEE SCANNED REPORT) PHOSPHORUS-OUTSID E LAB OUTSIDE LAB (SEE SCANNED REPORT) PTH-OUTSIDE LAB OUTS [facility] (SEE SCANNED REPORT) MICROALBUMIN RATIO-OUTSIDE LAB OUTSIDE LA B (SEE SCANNED REPORT) PROTEIN, UA-OUTSIDE LAB OUTSIDE LAB (SEE SCANNED REPORT) HEMOGLOBIN-OUTSID E LAB 13.6 12.0 - 16.0 G/DL OUTSIDE LAB (SEE SCANNED REPORT) 12/22/2023 History Per Patient LABORATORY OUTSIDE LAB (SEE SCANNED REPORT) documented in this encounter Care Teams Night Filler Relationship Specialty Start Date End Date Susi Art DO PCP - General Family Medicine 03/06/22 documented as of this encounter
--- OUTSIDE RECORDS SUMMARY | 2024-02-11 14:35 | External Medical Summary | Summary of Care ---
Author Name Unknown Organization [facility] Address [address] [place] [address] Phone [phone] Care Team Providers Care Bonderite Operator Name Role Phone Susi Art DO Primary Care Provider +1 [phone] Reason for Visit * Reason Onset Date Comments Medication Refill 01/05/2024 Encounter Details Date Type Department Care Team (Late st Contact Info) Description [facility] [address] [facility] [place] [address] Susi Art DO [address] [place] [address] HTN, goal below 140/90* Allergies No known active allergiesdocumented as of this encounter (statuses as of 01/06/2024) Medications Medication Sig Dispensed Refills Start Date [...] 02/10/2023 Active Topiramate 50 MG Oral Tablet (Topamax)Indications: Overweight,Chronic [...] THE MORNING 90 Tablet 1 01/06/2024 Active Losartan Potassium 100 MG Oral Tablet (Cozaar)Indications:H TN, goal below 140/90 TAKE 1 TABLET IN THE MORNING 90 Tablet 1 07/07/2023 Discontinue d(Refill) documented as of this encounter (statuses as of 01/06/2024) Active Problems Problem Noted Date Diagnosed Date MAREN (generalized anxiety disorder) 02/07/2023 MEDICATION USE AGREEMENT 02/07/2023 HTN, goal below 140/90 03/06/2022 Chronic fatigue 03/06/2022 Lumbar degenerative disc disease 03/06/2022 Chronic pain syndrome 03/06/2022 documented as of this encounter (statuses as of 01/06/2024) Resolved Problems Problem Noted Date Diagnosed Date Resolved Date Chest pain 07/26/2022 02/07/2023 Jaw pain 07/26/2022 02/07/2023 Trochanteric bursitis of right hip 12/10/2018 02/07/2023 documented as of this encounter (statuses as of 01/06/2024) Immunizations Name Administration Dates Next Due COVID-19 mRNA, LNP-s, No Pre serve, 2-Dose Series ([employer]) 11/12/2021,11/29/2020 TDAP (age 11 and older)(Adacel) 06/15/2012 [...] encounter Miscellaneous Notes * Telephone Encounter - Rosy Wheeler DO - 01/06/2024 7:39 AM ESTSigned Prescriptions: Disp Refills Losartan Potassium 100 MG Oral Tablet (Coz*90 Tab*1 Sig: TAKE 1 TABLET IN THE MORNING Authorizing Provider: ROSY WHEELER * Telephone Encounter - Emilia Goel LPN - 01/05/2024 1:17 PM EST No prescriptions requested or ordered in this encounter Last Visit: 02/07/2023 (in office), 02/27/2022 (telemedicine) Next Visit: 01/26/2024 Last date the medication was ordered: 07/07/23 Patient Active Problem List Diagnosis Code HTN, goal below 140/90 I10 Chronic fatigue R53.82 Lumbar degenerative disc disease M51.36 Chronic pain syndrome G89.4 MAREN (generalized anxiety disorder) F41.1 MEDICATION USE AGREEMENT [id number] Labs: Lab Results Component Value Date/Time CREATININE - [facility] 0.8 07/26/2022 10:43 AM CREATININE-OUTSIDE LAB 0.8 12/09/2022 12:00 AM Lab Results Component Value Date/Time POTASSIUM - [facility] 4.7 07/26/2022 10:43 AM POTASSIUM-OUTSIDE LAB 3.2 (A) 12/09/2022 12:00 AM Lab Results Component Value Date/Time TSH - [facility] 1.62 03/06/2022 11:13 AM Lab Results Component Value Date/Time LDL CHOLESTEROL (CALCULATED) - [facility] 120 03/06/2022 11:13 AM Lab Results Component Value Date/Time ALT - [facility] 22 07/26/2022 10:43 AM Hemoglobin AIC Results: No results found for: "HEMOGLOBIN A1C" documented in this encounter Plan of Treatment Upcoming Encounters Date Type Department Care Team (Late st Contact Info) Description 01/26/2024 5:40 PM EDT Office Visit Family Practice [place] [address] [place] [place] [address] Rosy Wheeler DO [address] [place] [place] [address] Health Maintenance Due Date Last Done Comments [...] Tdap) 06/15/2022 06/15/2012 COVID-19 Vaccine (3 - 2022- season) 2023 11/12/2021, 11/29/2020 Influenza Vaccine (FLU [...] goal below 140/90- Primary Unspecified essential hypertension documented in this encounter Care Teams Bonderite Operator Relationship Specialty Start Date End Date Susi Art DO PCP - General Family Medicine 03/06/22 documented as of this encounter
--- OUTSIDE RECORDS SUMMARY | 2024-02-11 14:35 | External Medical Summary | Summary of Care ---
Author Name Unknown Organization [facility] Address [address] [place] [address] Phone [phone] Care Team Providers Care Racking Machine Operator Name Role Phone Susi Art Primary Care Provider [phone] [phone] Encounter Details Date Type Department Care Team (Late st Contact Info) Description 12/22/2023 Result Scan Unspecified Department <No scans attached> Allergies No known active allergiesdocumented as of [...] mRNA, LNP-s, No Pre serve, 2-Dose Series ([employer]) 11/12/2021,11/29/2020 TDAP (age 11 and older)(Adacel) 06/15/2012 [...] money to buy more. Never true 12/22/19 Within the past 12 months, t he [...] Upcoming Encounters Date Type Department Care Team (Joselo st Contact Info) Description 01/26/2024 5:40 PM EDT Office Visit Family Practice [address], [place] [address] [place] [address] Rosy Wheeler DO [address] [place] [id number] Health Maintenance Due Date Last Done Comments [...] Td or Tdap) 06/15/2022 06/15/2012 COVID-19 Vaccine ( - season) 2023 11/12/2021, 11/29/2020 Influenza Vaccine [...] Procedure Name Priority Date/Time Associated Diagnosis Comments EKG SCANNED RESULT 12/22/2023 RADIOLOGY SCANNED RESULT 12/22/2023 documented in this encounter Results * RADIOLOGY SCANNED RESULT (12/22/2023) 12/22/2023 No Physician Data Unknown DIAGNOSTIC RAD IOLOGY SERVICES * EKG SCANNED RESULT (12/22/2023) 12/22/2023 No Physician Data Unknown EKG documented in this encounter Care Teams Racking Machine Operator Relationship Specialty Start Date End Date Susi Art DO PCP - General Family Medicine 03/06/22 documented as of this encounter
[2024-02-11] MEDS: ceFAZolin 1000MG 1,000 MG/7.5 ML SYR IV SCH (16:08)
[2024-02-11] MEDS: oxyCODONE HCL IR 5 MG TAB (IMMEDIATE RELEASE) PO PRN (16:16)
[2024-02-11] MEDS: DOCUSATE SODIUM/SENNA 50/8.6MG TAB PO SCH (20:18)
[2024-02-12] MEDS: POLYETHYLENE (MIRALAX) 17 GM PACK PO SCH (05:48)
[2024-02-12] MEDS: traMADol HCL 50 MG TABLET PO PRN (07:18)
[2024-02-12 07:37] LABS: Basophils # (auto) 0.01 K/uL (0.00-0.20); Basophils % (auto) 0.2 %; Eosinophils # (auto) 0.03 K/uL (0.00-0.50); Eosinophils % (auto) 0.5 %; Hematocrit (blood only) 32.8 % (37.0-47.0); Hemoglobin 11.9 g/dl (12.0-16.0); Immature Granulocytes # (auto) 0.02 K/uL (0.01-0.20); Immature Granulocytes % (auto) 0.3 %; Lymphocytes # (auto) 1.05 K/uL (1.20-3.40); Lymphocytes % (auto) 16.6 %; Mean Corpuscular Hemoglobin 32.7 pg (25.0-34.0); Mean Corpuscular Hgb Conc 36.3 g/dL (32.0-36.0); Mean Corpuscular Volume 90.1 fL (80.0-100.0); Mean Platelet Volume 9.1 fL (9.4-12.4); Monocytes # (auto) 0.58 K/uL (0.11-0.59); Monocytes % (auto) 9.2 %; Neutrophils # (auto) 4.62 K/uL (1.40-6.50); Neutrophils % (auto) 73.2 %; Platelet Count 198 K/uL (130-400); RDW Coefficient of Variation 11.5 % (11.5-14.5); RDW Standard Deviation 37.6 fL (36.4-46.3); Red Blood Count 3.64 M/uL (4.20-5.40); White Blood Count 6.31 K/ul (4.8-10.8)
[2024-02-12 08:05] LABS: BUN Creatinine Ratio 16.3 (10-20); Calcium 8.2 mg/dl (8.6-10.3); Creatinine Clr Calc Pharmacy 75.2 ml/min; Est GFR (African American) 95.5 ml/min; Est GFR (Non-African American) 82.4 ml/min; Potassium 3.6 mmol/L (3.5-5.1)
[2024-02-12] MEDS: CHOLECALCIFEROL 10 MCG (400 UNITS) TAB PO SCH (08:05)
[2024-02-12] MEDS: LOSARTAN POTASSIUM 50 MG TAB PO SCH (08:05)
[2024-02-12] MEDS: dexAMETHasone 6 MG in SYRINGE 0 ML IV SCH (08:10)
[2024-02-12] MEDS: KETOROLAC TROMETHAMINE 15 MG/ML VIAL IV PRN (09:36)
--- NOTE | 2024-02-12 12:04 | Orthopedic Progress Note ---
Date of Service February 12, 2024 Assessment & Plan (1) Neurogenic claudication due to lumbar spinal stenosis: Plan: At this time continue physical therapy monitor [facility] output anticipate discharge home in next few days. Admission and Anticipated Discharge Date Admission Date: February 11, 2024 Subjective Patient is struggling with back pain. She has improved leg pain however and has been ambulating well. Physical Exam Physical Exam: Patient is currently bed. Is good strength testing. Results & Data Vital Signs (Past 12 Hours) Vital Signs Temp Pulse Resp BP Pulse Ox O2 Del Method 02/12/24 07:51 37.5 C 76 16 134/72 99 Room Air 02/12/24 04:13 37.4 C 92 H 18 131/76 Room Air
[2024-02-12] MEDS: KETOROLAC 30 MG/ML VIAL IV PRN (16:04)
--- NOTE | 2024-02-13 08:39 | Discharge Summary ---
Date of Service February 13, 2024 Admission HPI Per Admitting Provider This is a 58-year-old female presents with chronic persistent back and leg pain after failing course of nonoperative care is here for surgical invention. Principal Diagnosis Lumbar spinal stenosis with spondylolisthesis and neurogenic claudication Discharge Data Allergies Allergy/AdvReac Type Severity Reaction Status Date / Time No Known Allergies Allergy Verified 02/11/24 06:34 Procedures Performed Operation Date: 02/11/24 07:45 Actual Procedures p L4-L5 Decompression and Fusion, Spinal Cord Monitoring(Not Applicable) - Praveen Marie DO Ordered Studies 02/11/24 [place] lumbar spine 2-3V Routine Hospital Course (1) Neurogenic claudication due to lumbar spinal stenosis: Patient 1 lumbar decompression fusion tolerated so staying the orthopedic for postoperative. Postop Toby she was up ambulating well. Marked improvement of her leg pain extra-strength testing. Simply discharged home. Discharge orders instructions from the chart for further review. Total Time Total Time Spent Total Time Spent (In Minutes): 20 minutes Discharge Plan Discharge Items Patient Disposition: Home - Self-Care Reason For Visit: Spinal Stenosis, Lumbar Region with Neurogenic Cla Discharge Diagnosis: Lumbar spinal stenosis with spondylolisthesis and neurogenic claudication Activity: As commented below Non-emergency contact: Primary Care Provider Call non-emergency contact if: you have any medication questions Follow-up/Referrals: Rosy Wheeler DO [Primary Care Provider] - Diet: Regular Addtl Attending Provider Instructions: ACTIVITY RECOMMENDATIONS: SELF CARE INSTRUCTIONS AFTER THORACIC/LUMBAR FUSIONS 1. You may walk to your tolerance. It is good exercise for your legs and back. Expect some back and intermittent leg aches and pains. 2. You may perform "counter-top" level activities (make a sandwich, loraine with a project, etc.). 3. No bending or lifting of more than 10 pounds or back twisting of any nature (roll like a log when turning in bed). 4. You may ride in a car for 20-30 minutes at a time. No driving until after your first visit with your doctor. 5. Frequent changes of position and restricting sitting to 30 minutes at a time will help limit the amount of back spasms and stiffness you may experience. 6. You may discontinue the use of ambulatory aids (cane, crutches, etc.) once your strength and confidence allow. 7. You may underground distribution engineer the shower and let water strike your incision when you arrive home at least once daily. Do not take a tub bath, sit in a hot tub or go into a swimming pool until after your first recheck in the office. SPECIAL CARE INSTRUCTIONS: VERY IMPORTANT TO READ AND REVIEW A. Your surgical incision has been closed with a cosmetic suture under the skin that will dissolve in about 6 weeks. In 14 days, you can use a pair of clean scissors and cut the suture that is left outside of the skin at the ends of your incision. 1. The small skin tapes can be removed 7 days after surgery if they have not fallen off by that point. 2. You may keep the wound open to air as much as possible to promote healing after post-op day number 5 unless told otherwise by your doctor. 3. If you think the wound looks like it is becoming infected (redness or worsening drainage) and/or you are experiencing fever, chill or worsening back pain and muscle spasms, contact the office so that we may evaluate you as soon as possible. B. Complications are uncommon, but please contact us if you have any signs or symptoms of: 1. wound infection (fever higher than 102.5 degrees F, redness, separation of wound, drainage, or increasing pain from the incision) 2. blood clots in legs (pain, swelling, redness and warmth in legs) 3. urinary tract infection (fever higher than 102.5 degrees F, burning upon urination or increased frequency of urination) 4. nerve problems (inability to walk on your toes or heels, numbness, loss of bowel or bladder control) 5. any other symptoms that concern you C. Please call the office at if you have any concerns or questions about your operation or recovery. D. No smoking! Smoking drastically decreases the chance of a solid fusion. E. Do not take any anti-inflammatory medications (Indocin, Advil, Motrin, Aspirin, Naprosyn, etc.) as these may inhibit the chance of a solid fusion. Tylenol is okay to take for pain. MANAGING PAIN AFTER SPINAL SURGERY 1. Narcotic medication is intended for short-term use and will be provided for surgical pain. Surgical pain usually lasts for a period of 4-6 weeks. Narcotic medication includes Percocet, Vicodin, Darvocet, Tylenol #3 or Lortab. 2. Longer-term pain is more appropriately treated with non-narcotic medication such as Tylenol ES. 3. Muscle spasm is not appropriately treated with narcotics. Muscle relaxers such as Soma, Flexeril or Skelaxin can be used along with Tylenol ES. 4. Remember that we all live with some "aches and pains". This is not unusual or uncommon after an injury or as we get older. a. Back pain is expected and may include muscle spasms for 4 to 6 weeks after surgery. The pain should gradually improve. If the pain worsens for no apparent reason, please contact the office. b. Intermittent leg pain may also be experienced and should not be concerned about unless it worsens for no apparent reason. If so, please contact the office. 5. We will provide appropriate medication within the normal guidelines of their prescribed use. We will also be very cautious and aware of potential abuse and extended duration of patients' medication needs. a. Pain medications are for your comfort and to assist with sleep and rest so that the tissue can heal. They are not provided in order to return to normal activity and should not be used through the day. To do so or worsening pain at night can result from ongoing tissue damage and development of tolerance to the prescribed medicine. 6. Please allow 2-3 days to process refills. Prescriptions will not be mailed but must be picked up at the office. FOLLOW UP VISIT: Keep your scheduled follow-up appointment. Any questions, please call the office at . Pending Studies at Discharge: No Stand-Alone Forms: [facility], Smoking Cessation Medications and DC Order Prescriptions: New tramadol 50 mg tablet 50 mg PO Q6H PRN (Reason: pain, moderate) Qty: 30 0RF lorazepam [Ativan] 1 mg tablet 1 mg PO Q8H PRN (Reason: anxiety) Qty: 20 0RF Continued multivitamin Tablet 1 tab PO QAM losartan 25 mg tablet 50 mg PO QAM polyethylene glycol 3350 [GlycoLax] 17 gram/dose powder 17 g PO UD PRN (Reason: regularity) tramadol 50 mg Tablet 50 mg PO UD PRN (Reason: pain in fingers) naproxen 500 mg Tablet 500 mg PO UD PRN (Reason: headaches) cholecalciferol (vitamin D3) [Vitamin D3] 10 mcg (400 unit) Capsule 10 mcg PO DAILY calcium 100 mg Capsule 100 mg PO Discharge Orders: Discharge Order (Routine); Ordered 02/13/24 Ordered By: Praveen Marie Admission Data Admit Date/Time: 02/11/24 09:30 Attending Provider: Praveen Marie Admit Provider: Praveen Marie Primary Care Provider: Rosy Wheeler
[2024-02-13] MEDS: LORazepam 0.5 MG in SYRINGE 0.25 ML IV PRN (08:56)
== END 2024-02-13 12:36 | disposition home or self-care (01) | DRG 455 ==
LOC: ASU 06:06 → 3E 09:30